=== PATIENT | male | born 1990 | race Caucasian/White ===

== ENCOUNTER 2023-11-06 16:51 | Emergency (ER) | payer BC, OTHER ==
[~2023-11-06] VITALS: Ht 175.3 cm; Wt 93.1 kg
[2023-11-06 16:55] VITALS: BP 133/78; PULSE 85; RESP 16; TEMP 98; O2SAT 100
[2023-11-06] MEDS ORDERED: KETOROLAC TROMETH 60MG/2ML VIAL IM ONE (19:45)
== END 2023-11-06 20:04 | disposition home or self-care (01) ==
LOC: ER 16:51
DX: M54.59 Other low back pain (principal); X50.0XXA Overexertion from strenuous movement or load, initial encounter; Y93.89 Activity, other specified; Y92.89 Other specified places as the place of occurrence of the external cause; Y99.8 Other external cause status
CPT/HCPCS: 72100; 96372; 99283; J1885